=== PATIENT | female | born 1950 | race Caucasian/White ===

== ENCOUNTER 2017-04-24 16:57 | Emergency (ER) | payer MEDICARE, MEDICAID ==
[~2017-04-24] VITALS: Ht 154.9 cm; Wt 60.0 kg
[2017-04-24 22:28] VITALS: BP 118/72
== END 2017-04-24 22:46 | disposition home or self-care (01) ==
LOC: ER 18:12
DX: M25.551 Pain in right hip (principal); I10 Essential (primary) hypertension
CPT/HCPCS: 72170; 99283